=== PATIENT | female | born 1930 | race Caucasian/White ===

== ENCOUNTER 2017-05-15 14:25 | Inpatient (IN) | payer OTHER ==
[~2017-05-15] VITALS: Ht 165.1 cm; Wt 48.3 kg
[~2017-05-15 14:25] MED LIST: LEVO100T; METO25TA91
[2017-05-15] MEDS ORDERED: SODIUM CHLORIDE 0.9% 1,000ML IVBOLUS ONE (16:30)
[2017-05-15] MEDS ORDERED: ONDANSETRON 2MG/ML, 2ML IVPush ONE (16:30)
[2017-05-15] MEDS ORDERED: SODIUM CHLORIDE FLUSH 10ML SYR IVF ONE (16:30)
[2017-05-15 16:31] LABS: HEMOGLOBIN 12.5 g/dL (11.7-16.4); WHITE BLOOD COUNT 13.2 x10^3/uL (3.4-10)
[2017-05-15 16:41] LABS: ASPARTATE AMINO TRANSFERASE 21 U/L (15-37); BLOOD UREA NITROGEN 52 mg/dL (7-18)
[2017-05-15] MEDS: SODIUM POLYSTYRENE SULFONATE ORAL SUSP PO ONE ×2 (17:00→21:00)
[2017-05-15] MEDS ORDERED: SODIUM CHLORIDE 0.9%, 500ML IVBOLUS ONE (17:00)
[2017-05-15] MEDS ORDERED: MAALOX/HYOSCYAMINE/LIDOCAINE 45 ML BTL ONE (17:24)
[2017-05-15] MEDS ORDERED: ONDANSETRON 2MG/ML, 2ML ONE (17:24)
[2017-05-15] MEDS ORDERED: LORazepam 2 MG/ML, 1ML ONE (17:44)
[2017-05-15] MEDS ORDERED: LEVO88TA4 PO (17:51)
[2017-05-15] MEDS ORDERED: CARV-39 PO (17:51)
[2017-05-15] MEDS ORDERED: PRAV40TA2 PO (17:51)
[2017-05-15] MEDS ORDERED: ASPI-496 PO (17:51)
[2017-05-15] MEDS ORDERED: morphine SULFATE 10 MG/ML, 1ML IVPush PRN (18:00)
[2017-05-15] MEDS ORDERED: hydrALAzine 20 MG/ML, 1ML IVPush PRN (18:00)
[2017-05-15] MEDS ORDERED: ONDANSETRON 2MG/ML, 2ML IVPush PRN (18:00)
[2017-05-15 18:28] VITALS: BP 109/64
[2017-05-15] MEDS ORDERED: LORazepam 2 MG/ML, 1ML IVPush PRN (18:30)
[2017-05-15] MEDS ORDERED: METOPROLOL 1 MG/ML, 5ML IVPush PRN (18:30)
[2017-05-15] MEDS: SODIUM CHLORIDE 0.9% 1,000 ML IV SCH (18:32)
[2017-05-15] MEDS: PANTOPRAZOLE 40 MG IV IVPush SCH (21:32)
[2017-05-16 03:19] VITALS: BP 137/72
[2017-05-16] MEDS: SODIUM CHLORIDE 0.9% 1,000 ML IV SCH ×3 (03:56→21:17)
[2017-05-16 04:59] LABS: HEMATOCRIT 32.4 % (34.6-47.8); HEMOGLOBIN 10.9 g/dL (11.7-16.4); WHITE BLOOD COUNT 11.7 x10^3/uL (3.4-10)
[2017-05-16 05:07] LABS: ASPARTATE AMINO TRANSFERASE 19 U/L (15-37); BLOOD UREA NITROGEN 42 mg/dL (7-18)
[2017-05-16 08:30] VITALS: BP 129/63
[2017-05-16] MEDS: PANTOPRAZOLE 40 MG IV IVPush SCH ×2 (09:15→21:17)
[2017-05-16] MEDS: ASPIRIN 81 MG TABLET EC PO SCH (12:30)
[2017-05-16] MEDS ORDERED: CARVEDILOL 25 MG TABLET PO SCH (13:00)
[2017-05-16] MEDS ORDERED: DILTIAZEM 5 MG/ML, 5ML IVPush ONE (13:00)
[2017-05-16 14:30] VITALS: BP 118/56
[2017-05-16] MEDS ORDERED: AMLO2.5T PO (14:33)
[2017-05-16] MEDS ORDERED: CARV12.52 PO (14:33)
[2017-05-16] MEDS ORDERED: LISI40TA PO (14:33)
[2017-05-16] MEDS: LEVOTHYROXINE 88 MCG TABLET PO SCH (15:50)
[2017-05-16 19:45] VITALS: BP 128/62
[2017-05-16] MEDS ORDERED: PRAVASTATIN 40 MG TABLET PO SCH (21:00)
[2017-05-17 01:27] VITALS: BP 121/65
[2017-05-17] MEDS: ASPIRIN 81 MG TABLET EC PO SCH (05:07)
[2017-05-17] MEDS: LEVOTHYROXINE 88 MCG TABLET PO SCH (05:07)
[2017-05-17 06:42] VITALS: BP 151/66
[2017-05-17] MEDS: PANTOPRAZOLE 40 MG IV IVPush SCH (08:26)
[2017-05-17] MEDS: SODIUM CHLORIDE 0.9% 1,000 ML IV SCH (08:27)
[2017-05-17] MEDS ORDERED: LEVOTHYROXINE 88 MCG TABLET PO SCH (09:00)
[2017-05-17] MEDS ORDERED: ASPIRIN 81 MG TABLET EC PO SCH (09:00)
[2017-05-17] MEDS ORDERED: CARVEDILOL 12.5 MG TABLET PO SCH (09:00)
[2017-05-17] MEDS ORDERED: LISINOPRIL 20 MG TABLET PO SCH (09:00)
[2017-05-17] MEDS ORDERED: AMLODIPINE 2.5 MG TABLET PO SCH (09:00)
[2017-05-17 09:09] LABS: BLOOD UREA NITROGEN 20 mg/dL (7-18)
== END 2017-05-17 10:19 | disposition home or self-care (01) | DRG 308 ==
LOC: ED 16:28 → EDIP 16:51 → 3NE 18:15 → 4WST 20:06
PROVIDERS: ADMIT Hospitalist; ATTEND Internal Medicine
DX: I48.91 Unspecified atrial fibrillation (principal); N17.0 Acute kidney failure with tubular necrosis; E87.5 Hyperkalemia; E86.0 Dehydration; E03.9 Hypothyroidism, unspecified; E78.5 Hyperlipidemia, unspecified; I10 Essential (primary) hypertension; K52.9 Noninfective gastroenteritis and colitis, unspecified; Z66 Do not resuscitate; Z90.49 Acquired absence of other specified parts of digestive tract; Z88.2 Allergy status to sulfonamides
CPT/HCPCS: 36415; 80048; 80053; 81001; 83605; 83690; 83735; 84100; 84443; 85025; 87046; 87077; 87086; 87186; 87324; 87899; 89055; 93005; 96361; 96374; J2405; C9113; J2060; J7030